=== PATIENT | male | born 1965 | race Caucasian/White ===

== ENCOUNTER 2018-05-18 16:22 | Outpatient (REF) | payer BC, SELFPAY ==
[2018-05-18 20:52] LABS: Bilirubin Negative (Negative); Blood Negative (Negative); Glucose Negative (Negative); Ketones Trace mg/dL (Negative); Leukocyte Esterase Negative (Negative); Nitrite Negative (Negative); Specific Gravity 1.025 (1.005-1.025); Urobilinogen 0.2 EU/dL (Up TO 0.2); pH 5.5 (5-8)
[2018-05-18 20:57] LABS: Anion Gap 9.5 mmol/L (3-11); BUN 20 mg/dL (7-18); CO2 27.5 mmol/L (21.0-32.0); CREATININE 0.84 mg/dL (0.70-1.30); Chloride 103 mmol/L (98-107); Glucose 93 mg/dL (70-100); Potassium 4.8 mmol/L (3.5-5.1); Sodium 140 mmol/L (136-145)
[2018-05-18 21:00] LABS: Hemoglobin A1C 5.6 % (4.5-6.2)
[2018-05-18 21:01] LABS: Clarity Sl Cloudy
== END 2018-05-18 16:42 ==
LOC: NCHCN 16:22
PROVIDERS: PCP Nurse Practitioner Family; Visit Provider Nurse Practitioner Family
DX: R35.1 Nocturia (principal)
CPT/HCPCS: 80048; 81003; 83036

== ENCOUNTER 2018-11-28 08:57 | Outpatient (CLI) | payer BC, SELFPAY | END 2018-11-28 09:17 | PROVIDERS: PCP Nurse Practitioner Family; Visit Provider Internal Medicine Interventional Cardiology | DX: I25.10 Atherosclerotic heart disease of native coronary artery without angina pectoris (principal); I10 Essential (primary) hypertension | CPT/HCPCS: 93005; 93010 ==

== ENCOUNTER 2020-09-18 09:05 | Outpatient (REF) | payer BC, SELFPAY ==
[2020-09-18 15:15] LABS: HCT 44.3 % (40.0-50.0); HGB 15.5 g/dL (13.5-17.5); MCH 29.9 pg (27.0-33.0); MCV 85.4 fL (80-95); MPV 9.9 fL (8.0-11.0); Platelet Count 319 10^3/uL (130-400); RBC 5.19 10^6/uL (4.36-5.78); RDW 12.1 % (11.8-14.1); RDW-SD 37.8 fL; WBC 7.79 10^3/uL (4.4-10.8)
[2020-09-18 15:28] LABS: ALT 46 U/L (16-63); AST 21 U/L (15-37); Alkaline Phosphatase 73 U/L (46-116); Anion Gap 8.6 mmol/L (3-11); BUN 19 mg/dL (7-18); Bilirubin, Total 0.5 mg/dL (0.2-1.0); CO2 25.4 mmol/L (21.0-32.0); CREATININE 0.78 mg/dL (0.70-1.30); Calcium 8.8 mg/dL (8.5-10.1); Calculated LDL 77 mg/dL (<100); Chloride 106 mmol/L (98-107); Cholesterol 129 mg/dL (<200); Glucose 110 mg/dL (74-106); HDL Cholesterol 36 mg/dL (40-60); Potassium 4.5 mmol/L (3.5-5.1); Sodium 140 mmol/L (136-145); Total Protein 7.2 g/dL (6.4-8.2); Triglyceride 83 mg/dL (<150)
== END 2020-09-18 09:25 ==
LOC: NCHCN 09:05
PROVIDERS: PCP Nurse Practitioner Family; Visit Provider Family Medicine
DX: R03.0 Elevated blood-pressure reading, without diagnosis of hypertension (principal); I25.10 Atherosclerotic heart disease of native coronary artery without angina pectoris; G56.03 Carpal tunnel syndrome, bilateral upper limbs
CPT/HCPCS: 80053; 80061; 85027

== ENCOUNTER 2020-10-22 09:28 | Outpatient (REF) | payer BC, SELFPAY ==
[2020-10-22 15:31] LABS: Hemoglobin A1C 5.9 % (<5.7)
== END 2020-10-22 09:29 | disposition home or self-care (01) ==
LOC: NCHCN 09:28
PROVIDERS: PCP Nurse Practitioner Family; Visit Provider Physician Assistant
DX: R73.9 Hyperglycemia, unspecified (principal)
CPT/HCPCS: 83036

== ENCOUNTER 2021-11-21 19:06 | Outpatient (REF) | payer BC, SELFPAY ==
[2021-11-21 20:08] LABS: ALT 38 U/L (16-63); AST 16 U/L (15-37); Albumin 4.2 g/dL (3.4-5.0); Alkaline Phosphatase 72 U/L (46-116); Anion Gap 7.5 mmol/L (3-11); BUN 16 mg/dL (7-18); Bilirubin, Total 0.5 mg/dL (0.2-1.0); CO2 28.5 mmol/L (21.0-32.0); CREATININE 0.9 mg/dL (0.70-1.30); Calcium 9.1 mg/dL (8.5-10.1); Chloride 104 mmol/L (98-107); Glucose 88 mg/dL (74-106); LDL CHOLESTEROL 84 mg/dL (<100); Potassium 4.3 mmol/L (3.5-5.1); Sodium 140 mmol/L (136-145); Total Protein 7.3 g/dL (6.4-8.2)
[2021-11-21 20:12] LABS: Hemoglobin A1C 5.8 % (<5.7)
== END 2021-11-21 19:07 | disposition home or self-care (01) ==
LOC: NCHCN 19:06
PROVIDERS: PCP Nurse Practitioner Family; Visit Provider Physician Assistant
DX: R73.03 Prediabetes (principal); I99.9 Unspecified disorder of circulatory system; Z95.1 Presence of aortocoronary bypass graft
CPT/HCPCS: 80053; 83721; 83036

== ENCOUNTER 2023-01-22 15:59 | Outpatient (REF) | payer BC, SELFPAY ==
[2023-01-22 19:32] LABS: ALT 44 U/L (16-63); AST 26 U/L (15-37); Alkaline Phosphatase 85 U/L (46-116); Anion Gap 6.6 mmol/L (3-11); BUN 17 mg/dL (7-18); Bilirubin, Total 0.5 mg/dL (0.2-1.0); CO2 28.4 mmol/L (21.0-32.0); CREATININE 0.9 mg/dL (0.70-1.30); Calcium 8.8 mg/dL (8.5-10.1); Chloride 105 mmol/L (98-107); Estimated GFR 100.86 (mL/min/1.73m2); Glucose 107 mg/dL (74-106); Potassium 4.1 mmol/L (3.5-5.1); Sodium 140 mmol/L (136-145); Total Protein 7.7 g/dL (6.4-8.2)
== END 2023-01-22 16:00 | disposition home or self-care (01) ==
LOC: NCHCN 15:59
PROVIDERS: PCP Nurse Practitioner Family; Visit Provider Physician Assistant
DX: R73.03 Prediabetes (principal); I25.10 Atherosclerotic heart disease of native coronary artery without angina pectoris
CPT/HCPCS: 80053

== ENCOUNTER 2023-09-02 16:46 | Outpatient (REF) | payer BC, SELFPAY ==
[2023-09-02 20:25] LABS: Hemoglobin A1C 5.6 % (<5.7)
== END 2023-09-02 16:47 | disposition home or self-care (01) ==
LOC: NCHCN 16:46
PROVIDERS: PCP Nurse Practitioner Family; Visit Provider Physician Assistant
DX: R73.03 Prediabetes (principal)
CPT/HCPCS: 83036

== ENCOUNTER 2024-03-07 15:06 | Outpatient (REF) | payer BC, SELFPAY ==
[2024-03-07 19:08] LABS: Abs Immature Grans 0.03 10^3/uL (0.0-0.06); Absolute Basophil Count 0.07 10^3/uL (0.0-0.2); Absolute Eosinophil Count 0.44 10^3/uL (0.0-0.7); Absolute Lymphocyte Count 2.75 10^3/uL (1.2-3.4); Absolute Monocyte Count 0.52 10^3/uL (0.1-0.8); Absolute Neutrophil Count 5.29 10^3/uL (1.2-6.7); Basophils % 0.8 %; Eosinophils % 4.8 %; HGB 14.8 g/dL (13.5-17.5); Immature Grans % 0.3 %; Lymphocytes % 30.2 %; MCH 30.7 pg (27.0-33.0); MCHC 35.2 % (32.0-36.0); MCV 87 fL (80-95); MPV 10.4 fL (8.0-11.0); Monocytes % 5.7 %; Neutrophils % 58.2 %; Platelet Count 295 10^3/uL (130-400); RBC 4.82 10^6/uL (4.36-5.78); RDW 12.3 % (11.8-14.1); RDW-SD 39.5 fL
[2024-03-07 19:23] LABS: ALT 41 U/L (16-63); AST 24 U/L (15-37); Albumin 4.2 g/dL (3.4-5.0); Alkaline Phosphatase 78 U/L (46-116); Anion Gap 9.7 mmol/L (3-11); BUN 18 mg/dL (7-18); Bilirubin, Total 0.65 mg/dL (0.2-1.0); CO2 28.3 mmol/L (21.0-32.0); Calcium 9.3 mg/dL (8.5-10.1); Chloride 106 mmol/L (98-107); Estimated GFR 88.33 (mL/min/1.73m2); Glucose 100 mg/dL (74-106); LDL CHOLESTEROL 87 mg/dL (<100); Potassium 3.8 mmol/L (3.5-5.1); Sodium 144 mmol/L (136-145); Total Protein 7.4 g/dL (6.4-8.2)
[2024-03-09 09:40] LABS: Hepatitis C Ab w Rflx HCV PCR Negative (Negative)
[2024-03-09 09:52] LABS: HIV-1/2 Ag & Ab Screen Negative (Negative)
== END 2024-03-07 15:07 | disposition home or self-care (01) ==
LOC: NCHCN 15:06
PROVIDERS: PCP Nurse Practitioner Family; Visit Provider Physician Assistant
DX: Z11.4 Encounter for screening for human immunodeficiency virus [HIV] (principal); I21.3 ST elevation (STEMI) myocardial infarction of unspecified site; Z11.59 Encounter for screening for other viral diseases
CPT/HCPCS: 80053; 83721; 86803; 87389; 85025

== ENCOUNTER 2025-04-27 15:26 | Outpatient (REF) | payer BC, SELFPAY ==
[2025-04-27 19:12] LABS: HCT 42.8 % (40.0-50.0); HGB 14.7 g/dL (13.5-17.5); MCH 30.2 pg (27.0-33.0); MCHC 34.3 % (32.0-36.0); MCV 88 fL (80-95); MPV 10.1 fL (8.0-11.0); Platelet Count 325 10^3/uL (130-400); RBC 4.87 10^6/uL (4.36-5.78); RDW 12.4 % (11.8-14.1); RDW-SD 39.8 fL; WBC 7.82 10^3/uL (4.4-10.8)
[2025-04-27 19:27] LABS: ALT 38 U/L (16-63); AST 20 U/L (15-37); Albumin 4.1 g/dL (3.4-5.0); Alkaline Phosphatase 77 U/L (46-116); Anion Gap 9.3 mmol/L (3-11); BUN 19 mg/dL (7-18); Bilirubin, Total 0.8 mg/dL (0.2-1.0); CO2 25.7 mmol/L (21.0-32.0); Calcium 8.9 mg/dL (8.5-10.1); Calculated LDL 91 mg/dL (<100); Chloride 103 mmol/L (98-107); Cholesterol 149 mg/dL (<200); Estimated GFR 107.47 (mL/min/1.73m2); Glucose 117 mg/dL (74-106); HDL Cholesterol 40 mg/dL (>or=40); Potassium 4.5 mmol/L (3.5-5.1); Sodium 138 mmol/L (136-145); Total Protein 7.5 g/dL (6.4-8.2); Triglyceride 92 mg/dL (<150)
== END 2025-04-27 15:27 | disposition home or self-care (01) ==
LOC: NCHCN 15:26
PROVIDERS: PCP Nurse Practitioner Family; Visit Provider Physician Assistant
DX: I99.9 Unspecified disorder of circulatory system (principal)
CPT/HCPCS: 80053; 80061; 85027; 84153

== ENCOUNTER 2025-05-03 14:54 | Outpatient (REF) | payer BC, SELFPAY ==
[2025-05-05 01:49] LABS: PSA, Diagnostic 0.5 ng/mL (<=3.5)
== END 2025-05-03 14:55 | disposition home or self-care (01) ==
LOC: NCHCN 14:54
PROVIDERS: PCP Nurse Practitioner Family; Visit Provider Physician Assistant
DX: I99.9 Unspecified disorder of circulatory system (principal)
CPT/HCPCS: 84153